=== PATIENT | female | born 1955 | race Caucasian/White ===

== ENCOUNTER 2023-03-27 20:39 | Outpatient (CLI) | payer MEDICARE, BC, SELFPAY | END 2023-03-27 20:40 | disposition home or self-care (01) | LOC: SLEEP 20:44 | PROVIDERS: PCP Family Medicine; Visit Provider Internal Medicine | DX: G47.33 Obstructive sleep apnea (adult) (pediatric) (principal) | CPT/HCPCS: 95810 ==